=== PATIENT | male | born 1940 | race Caucasian/White ===

== ENCOUNTER → 2017-01-11 | Outpatient (CLI) | END | disposition home or self-care (01) | DX: M17.12 Unilateral primary osteoarthritis, left knee (principal) | CPT/HCPCS: 73562; G0463 ==

== ENCOUNTER → 2017-02-22 | Outpatient (CLI) | payer MEDICARE, BC | END | disposition home or self-care (01) | LOC: HKI 14:42 | DX: Z02.9 Encounter for administrative examinations, unspecified (principal) ==

== ENCOUNTER 2017-02-27 07:30 | Inpatient (IN) | payer MEDICARE, BC ==
[~2017-02-27] VITALS: Ht 177.8 cm; Wt 81.3 kg
[~2017-02-27 07:30] MED LIST: KNEE PAIN COCKTAIL VANCO INJ SCH
[2017-03-08] VITALS (22 sets, daily range): BP systolic 87–145; BP diastolic 53–86; PULSE 72–84; RESP 16–37; Ht 177.8 cm; Wt 81.3 kg
[2017-03-08] MEDS ORDERED: ONDANSETRON 4 MG INJ IV ONE (06:00)
[2017-03-08] MEDS ORDERED: CELECOXIB 200 MG CAP PO ONE (06:00)
[2017-03-08] MEDS ORDERED: SOD CHLORIDE 0.9% IVPB ONE (06:00)
[2017-03-08] MEDS ORDERED: DEXAMETHASONE 4 MG/ML 1 ML INJ IV ONE (06:00)
[2017-03-08] MEDS ORDERED: LACTATED RINGER'S 1,000 ML IV* SCH (06:00)
[2017-03-08] MEDS ORDERED: LANSOPRAZOLE 30 MG CAP PO ONE (06:00)
[2017-03-08] MEDS ORDERED: TRANEXAMIC ACID IVPB ONE (06:00)
[2017-03-08] MEDS ORDERED: oxyCODONE (CR) 10 MG TAB [oxyCONTIN] PO ONE (06:00)
[2017-03-08] MEDS ORDERED: ACETAMINOPHEN 1000MG/100ML IV 100 ML IVPB ONE (06:00)
[2017-03-08] MEDS ORDERED: VANCOMYCIN 1 GM (PMX) 250 ML IVPB ONE (06:00)
--- NOTE | 2017-03-08 06:32 | HPN ---
Date/Time of Note Date/Time of Note DATE: 03/08/17 TIME: 06:32 Interval H&P Admission Note Pt. seen H&P reviewed: No system changes SAHIL IRAHETA PA-C Mar 08, 2017 06:32
[2017-03-08] MEDS ORDERED: BUPIVACAINE 0.5%/EPI (SDV) 30 ML INJ ONE (06:45)
[2017-03-08] MEDS ORDERED: BACITRACIN 50000 UNITS INJ ONE (06:59)
[2017-03-08] MEDS ORDERED: METHYLENE BLUE 1% 10 ML INJ ONE (07:03)
[2017-03-08] MEDS ORDERED: ROPIVACAINE 0.2% 100 ML ONE (07:03)
[2017-03-08] MEDS ORDERED: VANCOMYCIN 1 GM INJ ONE (07:03)
[2017-03-08] MEDS ORDERED: POLYMYXIN B 500000 UNIT INJ ONE (07:03)
[2017-03-08] MEDS ORDERED: TOBRAMYCIN 1.2 GM POWDER ONE (07:03)
[2017-03-08] MEDS ORDERED: LIDOCAINE 2% (SDV) 5 ML INJ ONE (07:14)
[2017-03-08] MEDS ORDERED: PROPOFOL 20 ML ONE (07:14)
[2017-03-08] MEDS ORDERED: BUPIVACAINE 0.5%/EPI (SDV) 10 ML INJ ONE (07:28)
[2017-03-08] MEDS ORDERED: TRANEXAMIC ACID IRR SCH ×2 (07:30)
[2017-03-08] MEDS ORDERED: KNEE PAIN COCKTAIL VANCO INJ SCH ×6 (07:30)
[2017-03-08] MEDS ORDERED: SOD CHLORIDE 0.9% IRR SCH ×2 (07:30)
--- NOTE | 2017-03-08 11:01 | PDOCDIS ---
Discharge Instructions DIAGNOSIS Discharge Diagnosis Status post left total knee arthroplasty CONDITION Patient Condition: Stable HOME CARE INSTRUCTIONS: Diet Instructions: Regular ACTIVITY: Activity Restrictions: Slowly Increase Activity Rest between Activity Avoid heavy lifting No Sexual Activity Do not Drive Do not operate Machinery Do not operate Power Tool Avoid Heavy Housework Keep Limb Elevated (Using cold therapy as well.) Weight Bearing (As tolerated with front wheeled walker) Bathing Restrictions: Shower (Using Tegaderm with pad. Apply prior to shower. Make sure area is dry before removing. Repeat the steps each day with new Tegaderm with pad until sera are removed around 10 days postoperatively.) FOLLOW UP/APPOINTMENTS Follow-up Plan 03/29/2017 at 10:45 AM SAHIL IRAHETA PA-C Mar 08, 2017 11:00
--- NOTE | 2017-03-08 11:15 | SIPON ---
Date/Time of Note Date/Time of Note DATE: 03/08/17 TIME: 11:12 Operative Report Preoperative Diagnosis Severe deg R Knee Postoperative Diagnosis Same Operation/Procedure Performed R TKR Surgeon: CRYSTAL BUENO MD assistant unit forester: SAHIL IRAHETA PA-C Anesthesia Type: general, epidural Estimated Blood Loss: 100 - 150 ml's Transfusion Required: no Complications: no CRYSTAL BUENO MD Mar 08, 2017 11:14
[2017-03-08] MEDS ORDERED: CEFAZOLIN 1 GM/50 ML (PMX) 50 ML IVPB ONE (11:20)
[2017-03-08] MEDS ORDERED: DOCUSATE SODIUM 100 MG CAP PO ONE ×2 (11:20→11:30)
[2017-03-08] MEDS: ACETAMINOPHEN 1000MG/100ML IV 100 ML IVPB SCH ×2 (11:24→18:59)
[2017-03-08] MEDS: ONDANSETRON 4 MG INJ IV SCH ×3 (11:29→23:56)
[2017-03-08] MEDS ORDERED: HYDROmorphONE (0.2 MG/ML) 10ML SYG IV PRN ×3 (11:30)
[2017-03-08] MEDS ORDERED: EPHEDrine SULFATE 50 MG/5 ML SYG IV PRN (11:30)
[2017-03-08] MEDS ORDERED: hydrALAzine 20 MG INJ IV PRN (11:30)
[2017-03-08] MEDS ORDERED: ONDANSETRON 4 MG INJ IV PRN (11:30)
[2017-03-08] MEDS ORDERED: MEPERIDINE 25 MG INJ IV PRN (11:30)
[2017-03-08] MEDS ORDERED: oxyCODONE 5 MG TAB PO PRN ×3 (11:30)
[2017-03-08] MEDS ORDERED: LABETALOL HCL 20MG INJ IV PRN (11:30)
[2017-03-08] MEDS ORDERED: ASPIRIN (EC) 325 MG TAB PO ONE (11:30)
[2017-03-08] MEDS ORDERED: OXYCODONE/ACETAMINOPHEN (5/325) TAB PO PRN ×2 (11:30)
[2017-03-08] MEDS ORDERED: FENTAnyl 50 MCG/ML VIAL IV PRN ×3 (11:30)
[2017-03-08] MEDS ORDERED: MIDAZOLAM 1 MG/ML 2 ML INJ IV PRN (11:30)
[2017-03-08] MEDS ORDERED: SENNA/DOCUSATE NA (8.6MG/50MG) TAB PO PRN (11:30)
[2017-03-08] MEDS ORDERED: DIPHENHYDRAMINE 50 MG INJ IV PRN (11:30)
[2017-03-08] MEDS ORDERED: BETHANECHOL 25 MG TAB PO PRN (11:30)
[2017-03-08] MEDS ORDERED: NA PHOSPHATE/BIPHOS 133 ML ENEMA PR PRN (11:30)
[2017-03-08] MEDS ORDERED: HYDROmorphONE 0.2 MG/ML PCA IV PRN (11:30)
[2017-03-08] MEDS ORDERED: MEPERIDINE 10 MG/ML 30 ML PCA IV PRN (11:30)
[2017-03-08] MEDS ORDERED: DIPHENHYDRAMINE 50 MG INJ IM PRN (11:30)
[2017-03-08] MEDS ORDERED: ZOLPIDEM 5 MG TAB PO PRN (11:30)
[2017-03-08] MEDS ORDERED: METOCLOPRAMIDE 10 MG INJ IV PRN (11:30)
[2017-03-08] MEDS ORDERED: COUMADIN NOTE XX SCH (11:30)
[2017-03-08] MEDS ORDERED: MAGNESIUM HYDROXIDE 30ML CUP PO PRN (11:30)
[2017-03-08] MEDS ORDERED: NALOXONE (0.4 MG/ML) INJ IV PRN (11:30)
[2017-03-08] MEDS ORDERED: BISACODYL 10 MG SUPP PR PRN (11:30)
[2017-03-08] MEDS: CEFAZOLIN 1 GM/50 ML (PMX) 50 ML IVPB SCH ×2 (11:33→19:39)
--- NOTE | 2017-03-08 12:23 | RADRPT ---
PROCEDURE: CR Left Knee CLINICAL INDICATION: Postop total knee replacement TECHNIQUE: AP and lateral views were submitted. COMPARISON: Intraoperative study done earlier on the same date FINDINGS: Osseous Structures: The total left knee replacement components appear well seated. The osseous eleme nts are otherwise intact. Joint Spaces: A postop drain has been placed and there is intra-articular air. Soft Tissues: Subcutaneous air is noted. Superficial sera been placed ventrally. IMPRESSION: 1. Well seated total left knee replacement. 2. A drain and superficial sera have been placed. Physician Ok Date Time Electronically viewed and signed by Physician Ok on 03/08/2017 12:22 RH/
--- NOTE | 2017-03-08 12:25 | RADRPT ---
PROCEDURE: CR Left Knee CLINICAL INDICATION: Knee replacement TECHNIQUE: AP and lateral views were submitted COMPARISON: 01/11/2017 FINDINGS: Osseous Structures: The distal femoral and proximal tibial components of the a total knee replacemen t have been well seated. The patellar is absent. The osseous elements appear intact. Joint Spaces: Intra-articular air is identified. No joint effusion is identified. Soft Tissues: The soft tissues appear unremarkable. IMPRESSION: 1. 2 views demonstrate well seated distal femoral and proximal tibial components of a total knee re placement. 2. The patella is absent. 3. Intra-articular air is noted. Physician Ok Date Time Electronically viewed and signed by Physician Ok on 03/08/2017 12:25 RH/
--- NOTE | 2017-03-08 12:37 | OPR ---
DATE OF OPERATION: 03/08/2017 DATE OF OPERATION: 03/08/2017. SURGEON: Jorden Elmore MD [employer] SALESPERSON: Dany Kim. ANESTHESIOLOGIST: Dr. Christianson. PREOPERATIVE DIAGNOSIS: Exceedingly severe degenerative osteoarthritis of the left knee. POSTOPERATIVE DIAGNOSIS: Exceedingly severe degenerative osteoarthritis of the left knee. OPERATION PERFORMED: Left total knee replacement (arthroplasty of the knee, condylar plateau, medial and lateral compartments with patella resurfacing, (CPT 37383). FINDINGS AT SURGERY: Patient is found to have extremely severe arthritis affecting all 3 compartments of the knee. The arthritis was way more severe than was noted on x-ray. The patient's bone was remarkably hard for a man his age. JUSTIFICATION FOR SURGERY: The knee was found to have end-stage osteoarthritis. Patient is a very active 77-year-old whose lifestyle is markedly affected by the arthritic knee. 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 An extensive course of conservative care has been tried prior to embarking on the knee replacement surgery. There can be no expectation that any further conservative treatment will make any improvement to this patient's pain level and lifestyle. DESCRIPTION OF PROCEDURE: The patient was given intravenous antibiotics 1 hour prior to the surgery. An epidural anesthetic was initiated in the anesthesia holding area. The patient was taken to the operating room and given a light general anesthetic. The leg, foot, and ankle were now prepared and draped in the usual sterile fashion. The center of the ankle was marked at the midpoint between the 2 malleoli with a sterile marking pen. A tourniquet around the thigh was inflated to 225 mmHg after the leg had been exsanguinated using an Esmarch bandage. The tourniquet was inflated at the initiation of the procedure for a short period and was then again reinflated at the time of cementing the component parts. The total tourniquet time was 54 minutes. The longitudinal incision was made over the anterior aspect of the knee. The incision extended from the tibial tubercle to a point just above the patella. The medial capsule was exposed by sharp and blunt dissection, and was incised 1/4 inch medial to the patella. A marking stitch was set on each side of the incision at the midpoint of the capsule so as to enable accurate reapproximation at the end of the operation. A vastus split was made in the vastus medialis extending from the superior pole of patella for approximately 5 cm between the muscle fibers. The ends of the muscle split at the patella was marked with a marking stitch for later accurate re-approximation. The patella was reflected laterally and osteophytes around the rim of the patella were removed. Osteophytes along the lateral femoral condyle were also removed to facilitate lateral reflection of the patella. Posterior osteophytes were removed so as to free up the lateral collateral ligament. Medial femoral osteophytes and posterior femoral osteophytes were removed. This allowed for the knee to be brought into a more normal alignment. A segment of bone was cut from the articular surface of the patella using a caliper to determine the exact thickness to be removed. The remaining thickness of the patella was 17 mm. The knee was flexed. Osteophytes in the femoral notch were removed. The remnants of the medial and lateral menisci were excised and the cruciate ligaments were excised. The medial collateral ligament was elevated as an ostial periosteal flap from the proximal tibia. The distal end of the medial collateral ligament remained attached to the tibia throughout the operation. The tibia was retracted forward with a Hohmann retractor inserted posterior to the midpoint of the proximal tibia. The tibia alignment jig was set in such a way as to align longitudinally with the anterior tibial spine. An AP and lateral x-ray was obtained with the alignment rods in place. This showed that the alignment was completely satisfactory after some slight adjustments were made. The posterior slope of the tibia was set at 7.5 degrees. The tibial cutting block was attached to the proximal tibia with 2 Steinmann pins. An external alignment lory was placed on the cutting block to reconfirm the alignment of the cutting block. An oscillating saw was used to remove an appropriate amount of bone from the proximal tibia with the healthy side being used to measure the cutting depth. The lateral femoral condyle of the distal femur was measured to determine the appropriate size for the femoral component. Anterior osteophytes of the femur were partially removed with a rongeur. The appropriately sized cutting block was attached to the distal femur with 2 Steinmann pins through the pin holes in the block. The external alignment jig of the cutting block was lined up with the anterior surface of the femur and an intercondylar hole for the intramedullary lory was drilled through the large hole in the alignment block. A long Waterpik nozzle was used to flush fat from the intramedullary canal. The cutting block was attached to the femur by means of an intramedullary lory. The linking guide was inserted into the slot in the base of the femoral cutting block with the knee in 90 degrees of flexion and with the linking guide flush with the proximal tibial cut in order to set the appropriate rotational alignment on the femoral cutting block. The ligament balance was checked at this point and was found to be very satisfactory. Once the rotational alignment had been determined, and the ligaments found to be balanced, the femoral cutting block was secured to the distal femur with 2 Steinmann pins. The anterior and posterior cuts on the distal femur were made off the distal femoral cutting block. With the use of spacer blocks, the flexion gap was measured and was found to be 15 mm. The same spacer block without the femoral element was used with the leg in extension to determine the amount of distal femur to be removed in the transverse plane. A 5-degree distal cutting block was now set on to the intramedullary lory and the lory was inserted into the intramedullary canal. The appropriate amount of bone to be removed was determined. The femoral cutting block was pinned to the anterior surface of the femur with 2 Steinmann pins. The appropriate amount of bone was resected off the distal femur to give an extension gap equal to the thickness of the flexion gap. The flexion and extension gaps were once again checked using the spacer block and were found to be equal. By using the appropriate cutting blocks the rest of the distal femoral cuts were made. The femoral trial component was installed and was found to fit perfectly. The femoral trial component was removed. The proximal tibia was sized and the appropriate tibial tray selected. The central fixation hole in the tibia was made using the tibial tray template and the appropriate instruments. The femoral and tibial trials and the trial spacer block were installed and the patella was prepared to accept the 35 patellar sized dome. With this patellar trial dome in place, the cut edges of the medial capsule were held together with a towel clip and the knee was put through a full range of motion. The patella was found to track satisfactorily. A lateral release was not required. The trial components were all removed. The tourniquet was inflated. The soft tissues around the knee, especially in the posterior capsule were injected with a mixture of Naropin, Toradol, morphine and clonidine. The cut surfaces of the bones were cleaned with pulsatile water-jet lavage and thoroughly dried. Sclerotic bone surfaces were drilled with a 1/8 inch drill. The tibial trial component was installed with methylmethacrylate cement followed by the femoral component and finally the patellar component. Note that cement was used on all 3 components. The cement was finger packed into the cut surfaces of the bone and pressurized with a rubber dam in order to get good interdigitation of the cement into the bone. A lateral x-ray of the knee was obtained while the cement was hardening, with the appropriate spacer trial in place. This showed that the knee was in . Once the cement was hard all extraneous cement was removed and patellar tracking was again checked and found to be satisfactory. The knee was frequently irrigated with normal saline containing antibiotics with pulsatile lavage throughout the entire operation as a prophylactic measure against infection. Once the cement was hard, the tourniquet was released. Bleeding points were cauterized. The total tourniquet time was 54 minutes. The patient's vital signs remained stable throughout the operation. The permanent rotating bearing was installed. Superficial and deep Hemovac drains were set in place. The wound was closed using interrupted Vicryl on the capsule with FiberWire used at strategic points such as the attachment of the distal ends of the vastus medialis at the split, and the tibial tendon was also attached to the ostial periosteal flap with FiberWire. A subcuticular stitch was inserted and sera were used on the skin. The usual sterile dressings were applied. A Jose De Jesus-Bender compression dressing was applied after a sterile cooling pad had been set in place against the deep tissues by sterile cast padding. The patient's condition at the end of the procedure was satisfactory. Vital signs remained stable throughout the operation. The patient returned to recovery room in stable condition. X-rays were obtained in the recovery room. Calf pumps were applied to both legs in the operating room. There were no problems or complications as far as is known. The sponge and instrument counts were correct. COMPONENT INFORMATION: Knee implant type: LCS Femoral component size: Large. Tibial component size: 4. Patellar component size: 35 mm dome. Tibial insert: 15 mm mobile bearing posterior stabilized deep dish. Implant Manufacturing Quality Manager: [employer] [place]. TOURNIQUET TIME: 225 mmHg and the tourniquet time was 54 minutes. TOTAL BLOOD LOSS: Approximately 150 cc. Dictated By: Jorden Elmore MD /alcira/azeb /Document#: [id number]
[2017-03-08] MEDS: DEXTROSE 5%-LR 1,000 ML IV SCH ×2 (14:15→23:31)
[2017-03-08] MEDS ORDERED: TRANEXAMIC ACID 810 MG in SOD CHLORIDE 0.9% 100 ML IVPB SCH ×2 (15:00→18:00)
[2017-03-08] MEDS ORDERED: TRANEXAMIC ACID 810 MG in SOD CHLORIDE 0.9% 100 ML IVPB ONE ×2 (15:00→18:00)
--- NOTE | 2017-03-08 18:34 | CONS ---
Date/Time of Note Date/Time of Note DATE: 03/08/17 TIME: 18:29 Assessment/Plan Assessment/Plan Problems: (1) Status post total knee replacement, left Status: Acute Comment: Immediately postoperative and doing well. He has no complaints to suggest untoward complication. We will follow him along carefully. (2) Hematuria Status: Chronic Comment: Noted. He has had a prior full evaluation Qualifiers: Qualified Code: R31.1 - Benign essential microscopic hematuria (3) BPH (benign prostatic hyperplasia) Status: Chronic Comment: Noted and stable. At the present time is not medications but we may need to do this if he has issues voiding postop Qualifiers: Qualified Code: N40.1 - Benign prostatic hyperplasia with urinary hesitancy (4) Hyperlipidemia Status: Chronic Comment: He may be appropriate to place on long-term statin therapy postoperative Qualifiers: Qualified Code: E78.00 - Pure hypercholesterolemia Consultation Date/Type/Reason Admit Date/Time Mar 08, 2017 at 05:47 Date of Consultation: Mar 08, 2017 Type of Consultation: Internal medicine Reason for Consultation Postoperative assistance after knee replacement Referring Provider: CRYSTAL BUENO MD Hx of Present Illness Benjamin 77-year-old male brought in electively for left total knee replacement. He had previously been evaluated and cleared by his regular care transitions nurse at [facility]. He is in general good health and actually does not take medicines at home except intermittent atorvastatin. Constitutional: no complaints Eyes: no complaints ENT: no complaints Respiratory: no complaints Cardiovascular: no complaints Gastrointestinal: no complaints Genitourinary: other (AUA score equals 8) Musculoskeletal: other (Knee pain although at this moment he reports is better than it was before surgery) Skin: no complaints Neurologic: no complaints Past Medical History 1), 2) benign prostatic hypertrophy, 3) history of microscopic hematuria with negative evaluation, Past Surgical History Past Surgical Hx: noncontributory Family History Significant Family History: heart disease, diabetes, other (Family history positive for CVA in mother; positive for cirrhosis in mother and brother; positive for pancreatic cancer in mother sister and brother) Social History Alcohol Use: none Smoking Status: Never smoker Drug Use: none Exam/Review of Systems Vital Signs Vitals Vital Signs Date Time Temp Pulse Resp B/P Pulse Ox O2 Delivery O2 Flow Rate FiO2 03/08/17 15:45 78 18 118/68 Room Air 03/08/17 14:00 97.0 03/08/17 12:44 98 03/08/17 11:14 2.0 Exam Constitutional: alert, oriented Head: atraumatic, normocephalic Eyes: EOMI, PERRL, nl conjunctiva, nl lids, nl sclera ENMT: mucosa pink and moist, nl external ears & nose, nl lips & teeth, nl nasal mucosa & septum Neck: non-tender, supple Respiratory: clear to auscultation, normal air movement Cardiovascular: nl pulses, regular rate and rhythm Gastrointestinal: nl liver, spleen, non-tender, soft Musculoskeletal: nl extremities to inspection, other (Left knee bandaged) Extremities: normal pulses Neurological: EMERGENCY ROOM SPECIALIST II-XII intact, nl mental status, nl speech, nl strength Medications Medications Current Medications Dextrose/Lactated Ringer's (D5-Lr) 1,000 ml @ 80 mls/hr [id number] IV Last administered on 03/08/17 14:15; Admin Dose 80 MLS/HR; Start 03/08/17 at 11:01 Hydromorphone HCl (Dilaudid VISUAL BASIC .NET DEVELOPER) Q4PCA PRN IV SEVERE PAIN 8-10; Start at 11:30; Stop 03/09/17 at 11:29 Meperidine HCl (Demerol VISUAL BASIC .NET DEVELOPER) Q4PCA PRN IV SEVERE PAIN 8-10; Start 03/08/17 at 11:30; Stop 03/09/17 at 11:29; Status Future Hold Oxycodone HCl (Roxicodone) 20 mg Q3H PRN PO PAIN LEVEL 8-10; Start 03/08/17 at 11:30 Oxycodone HCl (Roxicodone) 10 mg Q3H PRN PO PAIN LEVEL 4-7; Start 03/08/17 at 11:30 Oxycodone HCl 5 mg 5 mg Q3H PRN PO PAIN LEVEL 1-3; Start 03/08/17 at 11:30 Acetaminophen (Ofirmev 1000mg/ 100ml Iv) 100 ml @ 400 mls/hr Q8H IVPB Last administered on 03/08/17 11:24; Admin Dose 400 MLS/HR; Start 03/08/17 at 11:30 ; Stop 03/10/17 at 03:44 Zolpidem Tartrate (Ambien) 5 mg HS PRN PO INSOMNIA; Start 03/08/17 at 11:30 Ondansetron HCl 4 mg 4 mg Q6H IV Last administered on 03/08/17 18:04; Admin Dose 4 MG; Start 03/08/17 at 11:30; Stop 03/09/17 at 05:31 Cefazolin Sodium (Ancef 1 Gm/50 ml (Pmx)) 50 ml @ 100 mls/hr Q8H IVPB Last administered on 03/08/17 11:33; Admin Dose 100 MLS/HR; Start 03/08/17 at 11:30 ; Stop 03/09/17 at 03:59 Miscellaneous Information (Note) NOTE XX ; Start 03/08/17 at 11:30 Aspirin (Ecotrin) 325 mg BID PO ; Start 03/09/17 at 09:00 Celecoxib (Celebrex) 200 mg BID PO ; Start 03/09/17 at 09:00 Dexamethasone (Decadron) 4 mg DAILY@07 IV ; Start 03/09/17 at 07:00; Stop at 06:59 Pantoprazole (Protonix Tab) 40 mg DAILY@06 PO ; Start 03/10/17 at 06:00 Docusate Sodium/ Ferrous Fumarate (Wanda-Sequels) 1 tab BID PO ; Start 03/09/17 at 09:00 Docusate Sodium (Colace) 200 mg BID PO ; Start 03/09/17 at 09:00; Stop 03/12/17 at 08:59 Simethicone (Mylicon) 80 mg TID PRN PO DISTENSION/GAS/BLOATING; Start 03/08/17 at 11:30 Senna/Docusate Sodium (Senokot-S) 2 tab BID PRN PO CONSTIPATION; Start at 11:30 Magnesium Hydroxide (Milk Of Mag) 30 ml HS PRN PO CONSTIPATION; Start 03/08/17 at 11:30 Bisacodyl (Dulcolax Supp) 10 mg DAILY PRN [place] CONSTIPATION; Start 03/08/17 at 11 :30 Sodium Biphosphate/ Sodium Phosphate (Fleet Enema) 133 ml DAILY PRN [place] CONSTIPATION; Start 03/08/17 at 11:30 Diphenhydramine HCl (Benadryl) 25 mg Q4H PRN IM ITCHING OR RASH; Start at 11:30 Ketorolac Tromethamine (Toradol) 15 mg DAILY@06 PRN INJ ADMINSTER BY SURGEON ONLY; Start 03/09/17 at 06:00; Stop 03/13/17 at 05:59 Naloxone HCl (Narcan) 0.2 mg Q2M PRN IV DECREASED REPIRATORY RATE; Start at 11:30 Bupivacaine HCl 30 ml 30 ml DAILY INJ ; Start 03/09/17 at 06:00; Stop 03/11/17 at 09:01 Tranexamic Acid/ Sodium Chloride (Tranexamic Acid/ NS) 108.1 ml @ 200 mls/hr ONCE@18 IVPB Last administered on 03/08/17t 18:06; Admin Dose 200 MLS/HR; Start 03/08/17 at 18:00; Stop 03/08/17 at 18:33 JERSON BOURGEOIS MD Mar 08, 2017 18:34
[2017-03-09 00:15] VITALS: BP 119/60; RESP 20
[2017-03-09] MEDS: ACETAMINOPHEN 1000MG/100ML IV 100 ML IVPB SCH ×3 (03:25→21:03)
[2017-03-09] MEDS: CEFAZOLIN 1 GM/50 ML (PMX) 50 ML IVPB SCH (03:47)
[2017-03-09 05:00] VITALS: BP 134/63; PULSE 65; RESP 18
[2017-03-09 05:54] LABS: BASOPHILS % 0.1 % (0.0-2.0); EOSINOPHILS # 0.1 10^3/ul (0.0-0.5); EOSINOPHILS % 0.5 % (0.0-7.0); HEMATOCRIT 37.8 % (42.0-52.0); HEMOGLOBIN 12.8 g/dl (14.0-18.0); LYMPHOCYTES # 1.3 10^3/ul (0.8-2.9); MEAN CORPUSCULAR HEMOGLOBIN 32.2 pg (29.0-33.0); MEAN CORPUSCULAR HGB CONC 33.9 g/dl (32.0-37.0); MEAN PLATELET VOLUME 11.1 fl (7.4-10.4); MONOCYTE # 0.8 10^3/ul (0.3-0.9); MONOCYTES % 7.1 % (0.0-11.0); NEUTROPHIL # 8.9 10^3/ul (1.6-7.5); NEUTROPHILS % 79.8 % (39.0-77.0); PLATELET COUNT 135 10^3/UL (140-415); POSITIVE DIFF @See below; RED BLOOD COUNT 3.98 10^6/ul (4.70-6.10); RED CELL DISTRIBUTION WIDTH 12.3 % (11.5-14.5); WHITE BLOOD COUNT 11.1 10^3/ul (4.8-10.8)
[2017-03-09] MEDS: ONDANSETRON 4 MG INJ IV SCH (05:54)
[2017-03-09] MEDS ORDERED: BUPIVACAINE 0.25% (MPF) 30 ML INJ INJ SCH (06:00)
[2017-03-09] MEDS ORDERED: KETOROLAC 15 MG INJ INJ PRN (06:00)
[2017-03-09] MEDS ORDERED: BUPIVACAINE 0.25%/EPI (SDV) 30 ML INJ INJ PRN (06:00)
[2017-03-09] MEDS: DEXAMETHASONE 4 MG/ML 1 ML INJ IV SCH (06:54)
[2017-03-09 07:47] VITALS: BP 127/69; RESP 18
[2017-03-09] MEDS: CELECOXIB 200 MG CAP PO SCH ×2 (08:49→21:03)
[2017-03-09] MEDS: ASPIRIN (EC) 325 MG TAB PO SCH ×2 (08:49→21:03)
[2017-03-09] MEDS: DOCUSATE SODIUM 100 MG CAP PO SCH ×2 (08:49→21:04)
[2017-03-09] MEDS: FERROUS FUMARATE (SR) TAB PO SCH ×2 (08:49→21:04)
[2017-03-09] MEDS: DEXTROSE 5%-LR 1,000 ML IV SCH (12:01)
[2017-03-09 14:00] VITALS: BP 121/65; RESP 18
--- NOTE | 2017-03-09 14:45 | CONS ---
Date/Time of Note Date/Time of Note DATE: 03/09/17 TIME: 14:43 Assessment/Plan Assessment/Plan Chief Complaint/Hosp Course Benjamin 77-year-old male brought in electively for left total knee replacement. He had previously been evaluated and cleared by his regular midwife and birth center owner at [facility]. He is in general good health and actually does not take medicines at home except intermittent atorvastatin. Problems: (1) Status post total knee replacement, left Status: Acute Comment: He is progressing really nicely with physical therapy and postoperative. Anticipate possible discharge today versus tomorrow. Rehabilitation protection potential is excellent (2) BPH (benign prostatic hyperplasia) Status: Chronic Comment: Not an active issue Qualifiers: Lower urinary tract symptom presence: symptoms present Lower urinary tract symptom detail: urinary hesitancy Qualified Code: N40.1 - Benign prostatic hyperplasia with urinary hesitancy (3) Hyperlipidemia Status: Chronic Comment: Noted. Outpatient statin therapy Qualifiers: Hyperlipidemia type: pure hypercholesterolemia Qualified Code: E78.00 - Pure hypercholesterolemia Consultation Date/Type/Reason Admit Date/Time Mar 08, 2017 at 05:47 Initial Consult Date 03/08/17 Type of Consultation: Internal medicine Reason for Consultation Medical assistance with medical issues postop Referring Provider: CRYSTAL BUENO MD 24 HR Interval Summary Constitutional: no complaints Detailed Summary Respiratory: no complaints Cardiovascular: no complaints Gastrointestinal: no complaints Musculoskeletal: back pain, other (Hip pain) Neurologic: no complaints Exam/Review of Systems Vital Signs Vitals Vital Signs Date Time Temp Pulse Resp B/P Pulse Ox O2 Delivery O2 Flow Rate FiO2 03/09/17 07:47 97.8 64 18 127/69 97 03/09/17 05:00 Room Air 03/08/17 11:14 2.0 Intake and Output 03/08/17 03/08/17 03/09/17 15:00 23:00 07:00 Intake Total 1166.42 ml 926.2 ml 630 ml Output Total 100 ml 100 ml 80 ml Balance 1066.42 ml 826.2 ml 550 ml Exam Patient ambulated around the nursing station 3 times without taking a rest Constitutional: alert, oriented Neck: non-tender, supple Respiratory: clear to auscultation, normal air movement Cardiovascular: nl pulses, regular rate and rhythm Results Result Diagram: 03/09/17 0443 Results 24 hrs Laboratory Tests Test 03/09/17 04:43 White Blood Count 11.1 H Red Blood Count 3.98 L Hemoglobin 12.8 L Hematocrit 37.8 L Mean Corpuscular Volume 95.0 Mean Corpuscular Hemoglobin 32.2 Mean Corpuscular Hemoglobin Concent 33.9 Red Cell Distribution Width 12.3 Platelet Count 135 L Mean Platelet Volume 11.1 H Neutrophils % 79.8 H Lymphocytes % 12.0 L Monocytes % 7.1 Eosinophils % 0.5 Basophils % 0.1 Nucleated Red Blood Cells % 0.0 Neutrophils # 8.9 H Lymphocytes # 1.3 Monocytes # 0.8 Eosinophils # 0.1 Basophils # 0.0 Nucleated Red Blood Cells # 0.0 Medications Medications Current Medications Dextrose/Lactated Ringer's (D5-Lr) 1,000 ml @ 80 mls/hr [id number] IV Last administered on 03/08/17 14:15; Admin Dose 80 MLS/HR; Start 03/08/17 at 11:01 Oxycodone HCl (Roxicodone) 20 mg Q3H PRN PO PAIN LEVEL 8-10; Start 03/08/17 at 11:30 Oxycodone HCl (Roxicodone) 10 mg Q3H PRN PO PAIN LEVEL 4-7 Last administered on 03/09/17 08:49; Admin Dose 10 MG; Start 03/08/17 at 11:30 Oxycodone HCl 5 mg 5 mg Q3H PRN PO PAIN LEVEL 1-3; Start 03/08/17 at 11:30 Acetaminophen (Ofirmev 1000mg/ 100ml Iv) 100 ml @ 400 mls/hr Q8H IVPB Last administered on 03/09/17 12:43; Admin Dose 400 MLS/HR; Start 03/08/17 at 11:30 ; Stop 03/10/17 at 03:44 Zolpidem Tartrate (Ambien) 5 mg HS PRN PO INSOMNIA; Start 03/08/17 at 11:30 Miscellaneous Information (Note) NOTE XX ; Start 03/08/17 at 11:30 Aspirin (Ecotrin) 325 mg BID PO Last administered on 03/09/17 08:49; Admin Dose 325 MG; Start 03/09/17 at 09:00 Celecoxib (Celebrex) 200 mg BID PO Last administered on 03/09/17 08:49; Admin Dose 200 MG; Start 03/09/17 at 09:00 Dexamethasone (Decadron) 4 mg DAILY@07 IV Last administered on 03/09/17 06:54 ; Admin Dose 4 MG; Start 03/09/17 at 07:00; Stop 03/12/17 at 06:59 Pantoprazole (Protonix Tab) 40 mg DAILY@06 PO ; Start 03/10/17 at 06:00 Docusate Sodium/ Ferrous Fumarate (Wanda-Sequels) 1 tab BID PO Last administered on 03/09/17 08:49; Admin Dose 1 TAB; Start 03/09/17 at 09:00 Docusate Sodium (Colace) 200 mg BID PO Last administered on 03/09/17 08:49; Admin Dose 200 MG; Start 03/09/17 at 09:00; Stop 03/12/17 at 08:59 Simethicone (Mylicon) 80 mg TID PRN PO DISTENSION/GAS/BLOATING; Start 03/08/17 at 11:30 Senna/Docusate Sodium (Senokot-S) 2 tab BID PRN PO CONSTIPATION; Start at 11:30 Magnesium Hydroxide (Milk Of Mag) 30 ml HS PRN PO CONSTIPATION; Start 03/08/17 at 11:30 Bisacodyl (Dulcolax Supp) 10 mg DAILY PRN [place] CONSTIPATION; Start 03/08/17 at 11 :30 Sodium Biphosphate/ Sodium Phosphate (Fleet Enema) 133 ml DAILY PRN [place] CONSTIPATION; Start 03/08/17 at 11:30 Diphenhydramine HCl (Benadryl) 25 mg Q4H PRN IM ITCHING OR RASH; Start at 11:30 Ketorolac Tromethamine (Toradol) 15 mg DAILY@06 PRN INJ ADMINSTER BY SURGEON ONLY; Start 03/09/17 at 06:00; Stop 03/13/17 at 05:59 Naloxone HCl (Narcan) 0.2 mg Q2M PRN IV DECREASED REPIRATORY RATE; Start at 11:30 Bupivacaine HCl (Marcaine 0.25% (Mpf) 30 ml) 30 ml DAILY INJ ; Start 03/09/17 at 06:00; Stop 03/11/17 at 09:01 JERSON BOURGEOIS MD Mar 09, 2017 14:45
[2017-03-09 21:06] VITALS: BP 115/63; RESP 20
--- NOTE | 2017-03-09 22:39 | PN ---
DATE: 03/09/2017 SUBJECTIVE DATA: Postoperative day #1. Patient is making excellent progress. He has been up and about with physical therapy. He has no pain. His wound is clean and healing well. Dressings were changed. The Hemovac drain was removed. Temperature is normal. Hemoglobin is 12.8, and white cell count is 11.1. Dictated By: Jorden Elmore MD /[email or web address]/adam /Document#: [id number]
[2017-03-10] MEDS: DEXTROSE 5%-LR 1,000 ML IV SCH (00:31)
[2017-03-10 03:55] VITALS: BP 127/67; RESP 20
[2017-03-10] MEDS: ACETAMINOPHEN 1000MG/100ML IV 100 ML IVPB SCH (04:01)
[2017-03-10 05:22] LABS: BASOPHILS % 0.3 % (0.0-2.0); EOSINOPHILS # 0.2 10^3/ul (0.0-0.5); EOSINOPHILS % 1.7 % (0.0-7.0); HEMOGLOBIN 11.3 g/dl (14.0-18.0); LYMPHOCYTES # 1.9 10^3/ul (0.8-2.9); LYMPHOCYTES % 19.7 % (15.0-51.0); MEAN CORPUSCULAR HEMOGLOBIN 32.4 pg (29.0-33.0); MEAN CORPUSCULAR HGB CONC 34.2 g/dl (32.0-37.0); MEAN CORPUSCULAR VOLUME 94.6 fl (82.0-101.0); MEAN PLATELET VOLUME 11.1 fl (7.4-10.4); MONOCYTE # 0.8 10^3/ul (0.3-0.9); MONOCYTES % 8.1 % (0.0-11.0); NEUTROPHIL # 6.7 10^3/ul (1.6-7.5); NEUTROPHILS % 69.7 % (39.0-77.0); PLATELET COUNT 120 10^3/UL (140-415); POSITIVE DIFF @See below; RED BLOOD COUNT 3.49 10^6/ul (4.70-6.10); RED CELL DISTRIBUTION WIDTH 12.5 % (11.5-14.5); WHITE BLOOD COUNT 9.6 10^3/ul (4.8-10.8)
[2017-03-10] MEDS ORDERED: PANTOPRAZOLE (EC) 40 MG TAB PO SCH (06:00)
[2017-03-10] MEDS: DEXAMETHASONE 4 MG/ML 1 ML INJ IV SCH (06:04)
[2017-03-10 07:47] VITALS: BP 118/65; RESP 18
[2017-03-10] MEDS: ASPIRIN (EC) 325 MG TAB PO SCH (08:19)
[2017-03-10] MEDS: CELECOXIB 200 MG CAP PO SCH (08:19)
[2017-03-10] MEDS: DOCUSATE SODIUM 100 MG CAP PO SCH (08:19)
[2017-03-10] MEDS: FERROUS FUMARATE (SR) TAB PO SCH (08:19)
--- NOTE | 2017-03-10 12:19 | CONS ---
Date/Time of Note Date/Time of Note DATE: 03/10/17 TIME: 12:12 Assessment/Plan Assessment/Plan Problems: (1) Hyperlipidemia Status: Chronic Comment: On no chronic treatment. Continue treatment in the future per PMD Qualifiers: Hyperlipidemia type: pure hypercholesterolemia Qualified Code: E78.00 - Pure hypercholesterolemia (2) BPH (benign prostatic hyperplasia) Status: Chronic Comment: On no chronic treatment. Continue treatment in the future per PMD Qualifiers: Lower urinary tract symptom presence: symptoms present Lower urinary tract symptom detail: urinary hesitancy Qualified Code: N40.1 - Benign prostatic hyperplasia with urinary hesitancy (3) Status post total knee replacement, left Status: Acute Comment: Doing excellent on postop day #2. If patient is cleared by primary team believe patient has medical clearance for discharge Consultation Date/Type/Reason Admit Date/Time Mar 08, 2017 at 05:47 Initial Consult Date 03/08/17 Type of Consultation: Internal medicine Reason for Consultation Medical management Referring Provider: CRYSTAL BUENO MD 24 HR Interval Summary Constitutional: improved, no complaints Detailed Summary Respiratory: no complaints Cardiovascular: no complaints Gastrointestinal: no complaints Genitourinary: no complaints Musculoskeletal: bone/joint pain (Minimal pain left medial thigh when he is ambulating) Neurologic: no complaints Exam/Review of Systems Vital Signs Vitals VS - Last 72 Hours, by Label Date Time Temp Pulse Resp B/P Pulse Ox O2 Delivery O2 Flow Rate FiO2 03/10/17 07:47 97.5 69 18 118/65 96 03/10/17 03:55 97.5 67 20 127/67 97 03/09/17 21:06 97.7 74 20 115/63 96 03/09/17 14:00 97.7 77 18 121/65 98 03/09/17 07:47 97.8 64 18 127/69 97 03/09/17 05:00 98.1 65 18 134/63 98 Room Air 03/09/17 00:15 97.5 68 20 119/60 97 03/08/17 22:06 97.5 77 20 101/55 99 03/08/17 15:45 78 18 118/68 Room Air 03/08/17 15:15 81 18 123/80 Room Air 03/08/17 14:45 84 18 123/77 Room Air 03/08/17 14:30 80 18 122/64 Room Air 03/08/17 14:15 76 16 119/61 Nasal Cannula 03/08/17 14:00 97.0 78 18 118/68 Nasal Cannula 03/08/17 12:44 78 32 114/67 98 Nasal Cannula 03/08/17 12:14 76 23 104/59 99 Nasal Cannula 03/08/17 12:09 76 18 116/62 97 Nasal Cannula 03/08/17 12:04 76 17 108/60 97 Nasal Cannula 03/08/17 11:59 78 21 110/59 98 Nasal Cannula 03/08/17 11:54 80 22 114/56 98 Nasal Cannula 03/08/17 11:49 80 25 109/59 97 Nasal Cannula 03/08/17 11:44 78 18 109/65 98 Nasal Cannula 03/08/17 11:39 76 37 116/63 97 Nasal Cannula 03/08/17 11:34 78 19 113/63 97 Nasal Cannula 03/08/17 11:29 76 26 100/62 97 Nasal Cannula 03/08/17 11:24 74 29 100/55 95 Nasal Cannula 03/08/17 11:19 74 37 100/56 93 Nasal Cannula 03/08/17 11:14 98.3 72 25 87/53 92 Nasal Cannula 2.0 03/08/17 11:08 97.1 03/08/17 05:48 97.1 78 18 145/86 98 Room Air Vital Signs Date Time Temp Pulse Resp B/P Pulse Ox O2 Delivery O2 Flow Rate FiO2 03/10/17 07:47 97.5 69 18 118/65 96 03/09/17 05:00 Room Air 03/08/17 11:14 2.0 Intake and Output 03/09/17 03/09/17 03/10/17 15:00 23:00 07:00 Intake Total 100 ml 1020 ml 800 ml Output Total 400 ml Balance 100 ml 620 ml 800 ml Exam Constitutional: alert, oriented, well developed Respiratory: clear to auscultation, normal air movement Cardiovascular: nl pulses, regular rate and rhythm, No edema, No murmurs/extra sounds, No rub Gastrointestinal: bowel sounds, nl liver, spleen, non-tender, soft, No mass, No rebound or guarding Musculoskeletal: No nl extremities to inspection (Left knee dressed postoperatively) Extremities: normal pulses, No clubbing, No cyanosis, No edema 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, nl mental status, nl speech, nl strength Results Result Diagram: 03/10/17 0440 Results 24 hrs Laboratory Tests Test 03/10/17 04:40 White Blood Count 9.6 Red Blood Count 3.49 L Hemoglobin 11.3 L Hematocrit 33.0 L Mean Corpuscular Volume 94.6 Mean Corpuscular Hemoglobin 32.4 Mean Corpuscular Hemoglobin Concent 34.2 Red Cell Distribution Width 12.5 Platelet Count 120 L Mean Platelet Volume 11.1 H Neutrophils % 69.7 Lymphocytes % 19.7 Monocytes % 8.1 Eosinophils % 1.7 Basophils % 0.3 Nucleated Red Blood Cells % 0.0 Neutrophils # 6.7 Lymphocytes # 1.9 Monocytes # 0.8 Eosinophils # 0.2 Basophils # 0.0 Nucleated Red Blood Cells # 0.0 Medications Medications Current Medications Dextrose/Lactated Ringer's (D5-Lr) 1,000 ml @ 80 mls/hr [id number] IV Last administered on 03/08/17 14:15; Admin Dose 80 MLS/HR; Start 03/08/17 at 11:01 Oxycodone HCl (Roxicodone) 20 mg Q3H PRN PO PAIN LEVEL 8-10; Start 03/08/17 at 11:30 Oxycodone HCl (Roxicodone) 10 mg Q3H PRN PO PAIN LEVEL 4-7 Last administered on 03/09/17 08:49; Admin Dose 10 MG; Start 03/08/17 at 11:30 Oxycodone HCl (Roxicodone) 5 mg Q3H PRN PO PAIN LEVEL 1-3; Start 03/08/17 at 11 :30 Zolpidem Tartrate (Ambien) 5 mg HS PRN PO INSOMNIA; Start 03/08/17 at 11:30 Miscellaneous Information (Note) NOTE XX ; Start 03/08/17 at 11:30 Aspirin (Ecotrin) 325 mg BID PO Last administered on 03/10/17 08:19; Admin Dose 325 MG; Start 03/09/17 at 09:00 Celecoxib (Celebrex) 200 mg BID PO Last administered on 03/10/17 08:19; Admin Dose 200 MG; Start 03/09/17 at 09:00 Dexamethasone (Decadron) 4 mg DAILY@07 IV Last administered on 03/10/17 06:04 ; Admin Dose 4 MG; Start 03/09/17 at 07:00; Stop 03/12/17 at 06:59 Pantoprazole (Protonix Tab) 40 mg DAILY@06 PO Last administered on 03/10/17 06 :04; Admin Dose 40 MG; Start 03/10/17 at 06:00 Docusate Sodium/ Ferrous Fumarate (Wanda-Sequels) 1 tab BID PO Last administered on 03/10/17 08:19; Admin Dose 1 TAB; Start 03/09/17 at 09:00 Docusate Sodium (Colace) 200 mg BID PO Last administered on 03/10/17 08:19; Admin Dose 200 MG; Start 03/09/17 at 09:00; Stop 03/12/17 at 08:59 Simethicone (Mylicon) 80 mg TID PRN PO DISTENSION/GAS/BLOATING; Start 03/08/17 at 11:30 Senna/Docusate Sodium (Senokot-S) 2 tab BID PRN PO CONSTIPATION; Start at 11:30 Magnesium Hydroxide (Milk Of Mag) 30 ml HS PRN PO CONSTIPATION; Start 03/08/17 at 11:30 Bisacodyl (Dulcolax Supp) 10 mg DAILY PRN [place] CONSTIPATION; Start 03/08/17 at 11 :30 Sodium Biphosphate/ Sodium Phosphate (Fleet Enema) 133 ml DAILY PRN [place] CONSTIPATION; Start 03/08/17 at 11:30 Diphenhydramine HCl (Benadryl) 25 mg Q4H PRN IM ITCHING OR RASH; Start at 11:30 Ketorolac Tromethamine (Toradol) 15 mg DAILY@06 PRN INJ ADMINSTER BY SURGEON ONLY; Start 03/09/17 at 06:00; Stop 03/13/17 at 05:59 Naloxone HCl (Narcan) 0.2 mg Q2M PRN IV DECREASED REPIRATORY RATE; Start at 11:30 Bupivacaine HCl (Marcaine 0.25% (Mpf) 30 ml) 30 ml DAILY INJ ; Start 03/09/17 at 06:00; Stop 03/11/17 at 09:01 VIVIAN SALAZAR MD Mar 10, 2017 12:19
[2017-03-10 14:00] VITALS: BP 125/67; RESP 16
--- NOTE | 2017-03-12 06:53 | DS ---
Date/Time of Note Date/Time of Note DATE: 03/12/17 TIME: 06:52 Discharge Summary Admission/Discharge Info Admit Date/Time Mar 08, 2017 at 05:47 Discharge Date/Time Mar 10, 2017 at 17:20 Discharge Diagnosis Status post left total knee arthroplasty Patient Condition: Stable Hospital Course On the day of admission, the patient underwent left total knee arthroplasty Intraoperative complications: None Postoperative complications: None The patient was given prophylactic antibiotics and anticoagulants. On the day of surgery and first postoperative day patient was started on gait training and was taught usual restrictions following knee replacement Suction drain removed on the first postoperative day and the dressings were changed. The wound was found to be clean and healing well. There was no sign of infection. Pain cocktail given. On the second postoperative day, patient continued with inpatient PT. Dressings were changed. Wound was found to be clean and healing well. No signs of infection. Pain cocktail given. On the day of discharge, the wound was clean and healing well; there was no sign of infection. The dressings were changed. Discharge Temperature: 98 Discharge White Blood Cell Count: 9.6 Discharge Hemoglobin: 11.3 The patient was discharged home with home health. Arrangements were made for visiting nurses and home health/physical therapy. Tegaderm with pad also provided for patient. Instructions given on how to use to keep wound dry while showering. Patient may discontinue use of Tegaderm with pad after sera have been removed around 10 days postoperatively. The patient will be seen in office at scheduled postoperative evaluation date given on their preoperative exam. Should patient complain of any problems prior to scheduled postoperative evaluation date, they may call into outpatient clinic to determine if they need to be scheduled at sooner appointment to be seen immediately if needed. Discharge medications: As per medication reconciliation form Diet: Same as preadmission diet. This is Sahil Ellis PA-C dictating discharge summary for Dr. Jorden Elmore. Home Meds No Active Prescriptions or Reported Meds Follow-up Plan 03/29/2017 at 10:45 AM Primary Care Provider Not On Staff Doctor SAHIL IRAHETA PA-C Mar 12, 2017 06:53
== END 2017-03-10 17:20 | disposition home health service (06) | DRG 470 ==
LOC: REC 03-08 05:47 → MS1 03-08 13:43
PROC: 0SRD0J9 Replacement of Left Knee Joint with Synthetic Substitute, Cemented, Open Approach (ICD-10-PCS; principal; 2017-03-08 07:30)
DX: M17.12 Unilateral primary osteoarthritis, left knee (principal); R31.1 Benign essential microscopic hematuria; E78.5 Hyperlipidemia, unspecified; N40.0 Benign prostatic hyperplasia without lower urinary tract symptoms
CPT/HCPCS: 73560; 85025; 86850; 86900; 86901; 86920; 87070; 88304; 97110; 97116; 97161; 97166; 97530; C1776; J0131; J0690; J0735; J1100; J1885; J2274; J2405; J2795; J3370; J7120; J7121

== ENCOUNTER → 2017-03-29 | Outpatient (CLI) | payer MEDICARE, BC ==
--- NOTE | 2017-03-29 11:28 | PN ---
Date/Time of Note Date/Time of Note DATE: 03/29/17 TIME: 11:25 Outpatient Progress Note Chief Complaint 3 weeks status post left total knee replacement HPI 77-year-old male presents today for 3 week postoperative appointment status post left total knee replacement on 03/08/2017. Since being discharged from the hospital, patient states that he has been doing well. Patient did have an episode where he had significant swelling to the left lower extremity in which she states that he presented for a venous Doppler ultrasound which was negative for any DVT. Swelling has since been reduced. He denies any pain at this time. He denies any chest pain/tightness, shortness of breath. Denies any calf pain. Patient has been doing well in regards to range of motion but is yet to initiate outpatient physical therapy. He denies any falls or injury since discharge from the hospital. Patient is using no assistive ambulatory device on exam today. Presents today for postoperative appointment. Review of Systems Const: No Fever, no chills, no Fatigue, normal appetite, no diaphoresis. Resp: No SOB, no wheezing, no chest pain. CV: No chest pain, no palpitaions, no GOMEZ. Physical Exam Height is 5 foot 9 inches, weight is 181 pounds General Appearance: well-developed, well-nourished, in no acute distress. Left knee: On inspection, surgical wound is clean dry and intact and healing well. No signs of infection. No tenderness to palpation to the left knee on exam today. While lying supine patient is able to fully extend the left knee. Patient is able to perform straight leg raise and then flexion of the left knee up to 105 actively. No pain with range of motion on exam today. Negative Homans sign. No edema to the left lower extremity. Normal sensory examination to light touch. 5/5 strength on resistance with flexion and extension. Allergies Coded Allergies: Iodine and Iodide Containing Produc (Verified Allergy, Unknown, 02/22/17) Assessment/Plan Problems: (1) Status post total knee replacement, left -Wound healing well after staple removal. No signs of infection. -Continue ASA 325 mg twice daily for DVT prophylaxis until 6 weeks status post surgery. -No signs of DVT. -Patient progressing well. -Follow-up at 6 week postop appointment. X-rays will be performed at 6 weeks postoperative appointment. -Patient made aware that they may follow-up sooner, should they experience any issues or complications as we will be glad to see them. -Order for outpatient physical therapy given today with focus on improved range of motion. -Antibiotic card was provided today. Antibiotic card provided for patient. Patient made aware that dental prophylaxis will be necessary prior to any dental procedure for the remainder of their lifetime. Patient is aware that they must contact their dentist prior to any procedure to inform them of previous joint replacement with prosthesis implant so appropriate antibiotic may be prescribed to lower risk of joint infection status post surgery. Card will also serve as confirmation should patient be traveling and have to go through security such as at an airport. Medications Home Meds No Active Prescriptions or Reported Meds SAHIL IRAHETA PA-C Mar 29, 2017 11:28
== END | disposition home or self-care (01) ==
LOC: HKI 10:40
DX: Z09 Encounter for follow-up examination after completed treatment for conditions other than malignant neoplasm (principal); Z96.652 Presence of left artificial knee joint

== ENCOUNTER → 2017-04-19 | Outpatient (CLI) | payer MEDICARE, BC ==
--- NOTE | 2017-04-19 11:32 | PN ---
Date/Time of Note Date/Time of Note DATE: 04/19/17 TIME: 11:28 Outpatient Progress Note Chief Complaint 6 weeks status post left total knee replacement HPI 77-year-old male presents today for 6 week follow-up status post left total knee arthroplasty on 03/08/2017. Patient states that he continues to do well. Denies any pain complaints but does state that he has slight numbness to the distal lateral portion of the knee around the lateral side tibial plateau region. He states that numbness is gradually improving. Patient states that he is walking okay and is returned to his normal lifestyle. Patient is very happy status post surgery. Patient has had previous Doppler which was negative for blood clots/DVT but he does state that he continues with mild discomfort to the lateral ankle/distal fibular area. There was diagnosis of mild thrombophlebitis when patient underwent venous Doppler. Denies any chest pain/ tightness. Denies any shortness of breath. Patient states that discomfort to the lateral side/distal fibula feels muscular in general. Denies any aching or discomfort to the calf. Denies any falls or injury. Review of Systems Const: No Fever, no chills, no Fatigue, normal appetite, no diaphoresis. Resp: No SOB, no wheezing, no chest pain. CV: No chest pain, no palpitaions, no GOMEZ. Physical Exam Blood pressure is 129/64, temperature is 97.8, pulse of 78, respiratory rate is 12, height is 5 foot 9 inches, weight is 181 pounds General Appearance: well-developed, well-nourished, in no acute distress. Left knee: Well-healed surgical scarring. No tenderness to palpation. Patient is able to fully extend the knee and flex up to 126 on goniometer measurement. No pain with range of motion. Gait is normal and nonantalgic. 5/5 strength on resistance. Negative Homans sign. Normal sensory examination to light touch outside of decreased sensation along the lateral tibial plateau region. Imaging: X-ray of the Left knee performed on 04/19/2017 showing all components appearing well aligned, attached and integrated to the bone. No signs of any lucency between metal and bone. Allergies Coded Allergies: Iodine and Iodide Containing Produc (Verified Allergy, Unknown, 02/22/17) Assessment/Plan Problems: (1) Status post total knee replacement, left -Patient progressing well -Surgical wound continues to heal well. -No signs of infection or DVT on exam. -X-rays showing no abnormalities in regards to prosthesis attachment to bone. -Range of motion is improved status post total knee replacement. -Antibiotic prophylaxis card provided today. -Follow-up 6 months status post surgery. If patient is doing well at that time , possible follow-up on as-needed basis from that point. Dental prophylaxis discussed in detail today. Patient given prophylaxis card with antibiotic options. Should patient have allergy to specific medication ( eg penicillin) alternative options are also provided on the card. Patient is aware that antibiotics should be taken prior to any procedures to prevent increased risk of infection to the joint. Patient is aware that this will be for the rest of their life. Patient states understanding and compliance. Medications Home Meds No Active Prescriptions or Reported Meds SAHIL IRAHETA PA-C Apr 19, 2017 11:32
--- NOTE | 2017-04-19 13:46 | RADRPT ---
PROCEDURE: Left knee radiographs. CLINICAL INDICATION: Left knee pain. Postop. TECHNIQUE: Three views. Weight bearing. Frontal, lateral, and patellar view. COMPARISON: 03/08/2017. FINDINGS: There is no fracture or dislocation. Anterior skin sera and surgical drains have been removed. There is a total left knee constrained arthroplasty which appears satisfactory. There is a small joint effusion. There is no lytic lesion. IMPRESSION: 1. Satisfactory postoperative appearance of the left knee. RPTAT: QQ .Reilly Jeong MD, MD Date Time Electronically viewed and signed by .Reilly Jeong MD, MD on 04/19/2017 13:46 .R/
== END | disposition home or self-care (01) ==
LOC: HKI 09:56
DX: Z09 Encounter for follow-up examination after completed treatment for conditions other than malignant neoplasm (principal); Z96.652 Presence of left artificial knee joint; R20.0 Anesthesia of skin

== ENCOUNTER → 2017-09-21 | Outpatient (CLI) | END | disposition home or self-care (01) ==